=== PATIENT | male | born 1990 | race Caucasian/White ===

== ENCOUNTER 2019-09-21 15:02 | Emergency (ER) | payer MEDICARE, MEDICAID ==
[~2019-09-21] VITALS: Ht 152.4 cm; Wt 65.0 kg
[~2019-09-21 15:02] MED LIST: BUTA-281 PO; DIVA-81 PO; ESOM20CA PO; LIDOcaine 1% W/epiNEPHrine 1:100,000 20ml vial ONE; QUET25TA PO
[2019-09-21 15:33] VITALS: BP 112/70
[2019-09-21] MEDS ORDERED: bacitracin 15gm ointment TP ONE (15:35)
[2019-09-21] MEDS ORDERED: TETanus/Pertussis (Acell)/Diphther VAC/PF (Tdap-Adult) 0.5ml syringe IMVAC ONE (15:35)
[2019-09-21] MEDS ORDERED: LIDOcaine 1% W/epiNEPHrine 1:200,000 10ml vial IJ ONE (15:35)
--- NOTE | 2019-09-21 17:32 | NUR ---
TEST MANAGER DRESSED WOUND TO LEFT FOOT, PT ALEJANDRO WELL
== END 2019-09-21 17:40 | disposition home or self-care (01) ==
LOC: ER 15:03
DX: S91.311A Laceration without foreign body, right foot, initial encounter (principal); F12.90 Cannabis use, unspecified, uncomplicated; Z79.899 Other long term (current) drug therapy; W25.XXXA Contact with sharp glass, initial encounter; Y93.89 Activity, other specified; Y92.092 Bedroom in other non-institutional residence as the place of occurrence of the external cause; Y99.9 Unspecified external cause status
CPT/HCPCS: 12002; 73630; 90471; 90715; 99283

== ENCOUNTER 2024-07-13 21:34 | Emergency (ER) | payer MEDICARE, MEDICAID ==
[~2024-07-13] VITALS: Ht 175.3 cm; Wt 73.2 kg
[~2024-07-13 21:34] MED LIST changes: -LIDOcaine 1% W/epiNEPHrine 1:100,000 20ml vial ONE
[2024-07-13] MEDS: bacitracin 15gm ointment TP ONE (21:49)
[2024-07-13 21:50] LABS: BASOPHILS % (AUTO) 0.5 % (0-1); EOSINOPHILS # (AUTO) 0.1 X10'3 (0-0.9); HEMATOCRIT 43.6 % (42.0-52.0); HEMOGLOBIN 14.6 g/dl (14.0-17.9); LYMPHOCYTES # (AUTO) 2.5 X10'3 (1.1-4.8); LYMPHOCYTES % (AUTO) 32.9 % (21-51); MEAN CORPUSCULAR HEMOGLOBIN 30.9 PG (27.0-31.0); MEAN CORPUSCULAR HGB CONC 33.4 g/dL (33.0-36.5); MEAN CORPUSCULAR VOLUME 92.4 FL (78-98); MEAN PLATELET VOLUME 8.3 FL (7.4-10.4); MONOCYTES # (AUTO) 0.8 X10'3 (0-0.9); MONOCYTES % (AUTO) 10.1 % (2-12); NEUTROPHILS # (AUTO) 4.3 X10'3 (1.8-7.7); NEUTROPHILS % (AUTO) 55.5 % (42-75); PLATELET COUNT 289 X10'3 (140-440); RED BLOOD COUNT 4.72 X10'6 (4.70-6.10); RED CELL DISTRIBUTION WIDTH 13.5 % (11.5-14.5); WHITE BLOOD COUNT 7.7 X10'3 (4.5-11.0)
[2024-07-13] MEDS: TETanus/Pertussis (Acell)/Diphther VAC/PF (Tdap-Adult) 0.5ml syringe IMVAC ONE (21:50)
[2024-07-13 22:14] LABS: ALBUMIN 4.4 G/DL (3.4-5.0); ANION GAP 8 (8-16); BLOOD UREA NITROGEN 10 MG/DL (7-18); BUN/CREATININE RATIO 9.6 (10.0-20.0); CALCIUM 9.5 MG/DL (8.5-10.1); CHLORIDE 107 MMOL/L (99-107); CREATININE 1.04 MG/DL (0.60-1.10); ETHANOL < 10 MG/DL (<10); GLUCOSE 113 MG/DL (70-104); POTASSIUM 3.9 MMOL/L (3.5-5.1); SALICYLATE 2.3 MG/DL (4.0-20.0); SODIUM 144 MMOL/L (135-145); THYROID STIMULATING HORMONE 1.85 ulU/ml (0.34-4.50); TOTAL CARBON DIOXIDE 28.6 MMOL/L (24-32); eCRCL 98 ML/MIN; eGFR 81 ML/MIN
[2024-07-13 22:24] LABS: ACETAMINOPHEN < 2.0 UG/ML (10-30)
[2024-07-13] MEDS: LIDOcaine 1% W/epiNEPHrine 1:100,000 20ml vial IJ ONE (22:59)
[2024-07-13] MEDS: haloperidol lactate 5mg/ml inj IVH ONE (23:32)
[2024-07-13 23:56] LABS: BILIRUBIN,URINE NEGATIVE (Neg); CLARITY,URINE SLIGHTLY CLOUDY (Clear); COLOR,URINE YELLOW (Yellow); GLUCOSE, URINE NEGATIVE (Neg); KETONES,URINE NEGATIVE (Neg); LEUKOCYTE ESTERASE ,URINE NEGATIVE (Neg); NITRITES, URINE NEGATIVE (Neg); OCCULT BLOOD,URINE MODERATE (Neg); PROTEIN,URINE TRACE mg/dl (Neg); UROBILINOGEN,URINE 0.2 E.U/dL (0.2-1.0)
[2024-07-13 23:59] LABS: UA COLLECTION TYPE CLN CATCH MIDSTREAM
[2024-07-13] MEDS: haloperidol lactate 5mg/ml inj IM ONE (23:59)
[2024-07-14] LABS: BACTERIA,URINE 2+ /HPF (Neg); MUCUS STRANDS MODERATE /LPF (Neg); SQUAMOUS EPITHELIAL CELL,UR FEW /LPF (FEW)
[2024-07-14] MEDS: LORazepam 2 mg/ml vial IM ONE
[2024-07-14 00:01] LABS: HYALINE CASTS 0-3 /LPF (NEGATIVE); WBC,URINE 0-4 /HPF (0-4)
[2024-07-14] MEDS: diphenhydrAMINE 50 mg/ml inj IM ONE (00:04)
[2024-07-14 00:11] LABS: URINE AMPHETAMINE SCREEN NEGATIVE (Neg); URINE BARBITUATE SCREEN NEGATIVE (Neg); URINE BENZODIAZEPINES SCREEN NEGATIVE (Neg); URINE CANNABINOID SCREEN POSITIVE (Neg); URINE COCAINE SCREEN NEGATIVE (Neg); URINE METHADONE SCREEN NEGATIVE (Neg); URINE OPIATE SCREEN NEGATIVE (Neg); URINE PHENCYCLIDINE SCREEN NEGATIVE (Neg)
[2024-07-14] MEDS ORDERED: ESCI-8 PO (00:15)
[2024-07-14] MEDS ORDERED: PRAZ1CAP5 PO (00:15)
[2024-07-14] MEDS ORDERED: QUET50TA24 PO (00:15)
[2024-07-14] MEDS ORDERED: HYDR-3686 PO (00:15)
[2024-07-14] MEDS ORDERED: hydrOXYzine 25 MG tablet PO PRN (00:55)
[2024-07-14 05:17] VITALS: O2SAT 100
[2024-07-14] MEDS: ESCITALOPRAM 10 mg tablet 10 MG TABLET PO SCH (09:07)
[2024-07-14 11:48] VITALS: BP 127/71; PULSE 60; RESP 18; TEMP 98.7
[2024-07-14] MEDS ORDERED: quetiapine 100mg tablet PO SCH (21:00)
[2024-07-14] MEDS ORDERED: prazosin 1mg capsule PO SCH (21:00)
== END 2024-07-14 10:32 | disposition left against medical advice (07) ==
LOC: ER 21:34
DX: S11.91XA Laceration without foreign body of unspecified part of neck, initial encounter (principal); T14.91XA Suicide attempt, initial encounter; F20.9 Schizophrenia, unspecified; F31.9 Bipolar disorder, unspecified; F12.90 Cannabis use, unspecified, uncomplicated; Z20.822 Contact with and (suspected) exposure to COVID-19; X58.XXXA Exposure to other specified factors, initial encounter; Y93.89 Activity, other specified; Y92.89 Other specified places as the place of occurrence of the external cause; Y99.8 Other external cause status
CPT/HCPCS: 12002; 36415; 80048; 80305; 80329; 81001; 84443; 85025; 87811; 90715; 96372; 99284; G0008; G0480; J1200; J1630; J2060; Z7610; 80320; 90471

== ENCOUNTER 2024-07-14 13:21 | Emergency (ER) | payer MEDICARE, MEDICAID ==
[~2024-07-14] VITALS: Ht 170.2 cm; Wt 73.2 kg
[~2024-07-14 13:21] MED LIST changes: +ESCI-8 PO; +HYDR-3686 PO; +PRAZ1CAP5 PO; +QUET50TA24 PO
[2024-07-14 14:14] VITALS: BP 116/79; PULSE 78; RESP 18; TEMP 98.7; O2SAT 99
== END 2024-07-14 14:18 | disposition home or self-care (01) ==
LOC: ER 13:21
DX: R45.851 Suicidal ideations (principal); F20.9 Schizophrenia, unspecified; F31.9 Bipolar disorder, unspecified; F12.90 Cannabis use, unspecified, uncomplicated
CPT/HCPCS: 99281; 99285

== ENCOUNTER 2024-11-19 14:42 | Emergency (ER) | payer MEDICARE, MEDICAID ==
[~2024-11-19] VITALS: Ht 177.8 cm; Wt 76.0 kg
[~2024-11-19 14:42] MED LIST changes: -BUTA-281 PO; -DIVA-81 PO; -ESOM20CA PO; -QUET25TA PO
[2024-11-19] MEDS ORDERED: CLIN300C3 PO (15:37)
--- NOTE | 2024-11-19 15:37 | Physician Documentation ---
HPI ~ General Chief Complaint: Tooth Problem Stated Complaint: TOOTH PAIN Time Seen by MD: 15:09 Primary Medical Doctor: Dr. Veliz History of Present Illness HPI Comment A 34-year-old male presents with a complaint of ongoing tooth issues. States he has pain in his in his back upper left molars. Says he has had difficult and get an in his see a dentist does not allow. Staying denies nausea or vomiting denies fevers Day of Onset: Nov 19, 2024 Medication Reconciliation Allergies: Coded Allergies: No Known Allergies (Unverified , 10/05/11) Scheduled Clindamycin HCl (Cleocin HCl), 1 CAP PO Q8H Escitalopram Oxalate (Escitalopram Oxalate), 1 TAB PO DAILY, (Reported) Prazosin Hcl (Prazosin Hcl), 1 MG PO HS, (Reported) Quetiapine Fumarate (Quetiapine Fumarate), 2 TAB PO HS, (Reported) Scheduled PRN Hydroxyzine Hcl* (Atarax*), 1 TAB PO Q8H PRN for for anxiety/agitation, (Rep orted) Past Medical History Past Medical History: Seizures, Bipolar, Schizophrenia Past Surgical History: no surgical history Alcohol Use: None Drug Use: marijuana Lives with: Family Lives In: Home Review of Systems All Other Systems at this time: Reviewed and Negative ROS As stated above in the HPI, otherwise all systems are reviewed and negative. Physical Exam Vital Signs: Temperature: 98.4, Source: Oral, Heart Rate: 79, Respiratory Rate: 16, BP: 121/85, Pulse Oximetry: 100, Weight: 76.000 Oxygen Flow Rate: 0 Physical Exam General: Alert, no apparent distress. HEENT: PERRL, EOMI, no injection, moist mucous membranes. Tooth caries throughout oral cavity and a poor dentition. swollen tissue in the upper left tissue surrounding the upper left molar Psychiatric: Normal mood and affect. Skin: Normal color, warm and dry. No edema, no ecchymosis. Progress Results/Orders Results/Orders Completed Orders - FELIPE PHIPPS NP Ketorolac Trometh 15mg/Ml Vial (Toradol (11/19/24 15:25) Clindamycin Capsule (Cleocin Capsule) (11/19/24 15:25) Medications Received in ER Medications (Trade) Dose Ordered Sig/Sisi Route PRN Reason Start Time Stop Time Status Last Admin Dose Admin (Toradol injection) 15 mg ONCE ONCE IM 11/19/24 15:25 11/19/24 15:26 DC 11/19/24 15:39 15 MG (Cleocin capsule) 300 mg ONCE ONCE PO 11/19/24 15:25 11/19/24 15:26 DC 11/19/24 15:37 300 MG Vital Signs 11/19/24 11/19/24 11/19/24 14:44 15:39 15:48 Temp 98.4 98.4 Pulse 79 69 Resp 16 16 16 B/P (MAP) 121/85 130/72 Pulse Ox 100 98 O2 Flow Rate 0 Medical Decision Making Findings Want to treat the patient for a suspected tooth abscess and treat empirically with the oral antibiotic. No notable submandibular swelling no concerns for Lamberto's angina Differential Dx:Considerations: Include: Alveolar fracture, Alveolar osteitis, ANUG, Facial Cellulitis, Periapical abscess, Peridontal abscess, Post-extraction bleeding, Pulpitis, Tooth avulsion, Tooth eruption, Tooth Fracture, Trigeminal neuralgia, Tooth subluxation, Other Departure Disposition: 01 HOME / SELF CARE / HOMELESS Impression: Primary Impression: Dental abscess Discharge Instructions: Dental Caries, Adult Referrals: NO PRIMARY CARE PROVIDER (PCP) Prescriptions Clindamycin HCl (Cleocin HCl) 300 Mg Capsule 1 CAP PO Q8H for 10 Days, #30 CAP Prov: FELIPE PHIPPS ZMT OPERATOR 11/19/24 Signature Scribe Signature: t Attestation: Scribed for Felipe Phipps Masonry Instructor by Felipe Fisher NP . 11/19/24 22:30 FELIPE PHIPPS ZMT OPERATOR Nov 19, 2024 15:37
[2024-11-19] MEDS: ketorolac trometh 15mg/ml vial 15 MG/ML ML IM ONE (15:39)
[2024-11-19 15:48] VITALS: BP 130/72; PULSE 69; RESP 16; TEMP 98.4; O2SAT 98
== END 2024-11-19 15:49 | disposition home or self-care (01) ==
LOC: ER 14:43
DX: K04.7 Periapical abscess without sinus (principal); F20.9 Schizophrenia, unspecified; F31.9 Bipolar disorder, unspecified; F12.90 Cannabis use, unspecified, uncomplicated
CPT/HCPCS: 96372; 99283; J1885